=== PATIENT | female | born 1975 | race African-American/Black ===

== ENCOUNTER 2025-01-20 07:56 | Emergency (ER) | payer OTHER ==
[~2025-01-20] VITALS: Ht 167.6 cm; Wt 90.7 kg
[~2025-01-20 07:56] MED LIST: DICY20TA2 MT; FAMO-135 MT
[2025-01-20 08:04] VITALS: TEMP 36.7; O2SAT 97
[2025-01-20] MEDS: BACITRACIN ZINC OINT UDPKT TOP ONE (09:03)
[2025-01-20] MEDS: LIDOCAINE HCL/PF 1% 10 MG/ML 5ML VIAL INFIL ONE (09:03)
[2025-01-20 09:50] VITALS: BP 124/84; PULSE 66; RESP 18; O2SAT 100
== END 2025-01-20 09:51 | disposition home or self-care (01) ==
LOC: ER 07:56
DX: S61.211A Laceration without foreign body of left index finger without damage to nail, initial encounter (principal); Z88.0 Allergy status to penicillin; Z91.040 Latex allergy status; Z98.890 Other specified postprocedural states; W26.0XXA Contact with knife, initial encounter; Y93.89 Activity, other specified; Y92.89 Other specified places as the place of occurrence of the external cause; Y99.8 Other external cause status
CPT/HCPCS: 12002; 99282; J2003; Z7610